=== PATIENT | female | born 1995 | race Caucasian/White ===

== ENCOUNTER 2020-04-03 17:06 | Emergency (ER) | payer OTHER, SELFPAY ==
[2020-04-03 17:25] VITALS: BP 124/70; PULSE 82; RESP 12; TEMP 37.6; O2SAT 100
--- NOTE | 2020-04-03 18:02 | ED.NAVMDI ---
HPI - Nausea/Vomiting/Diarrhea General Chief complaint: Nausea/Vomiting/Diarrhea Stated complaint: vomiting Source: patient and RN notes reviewed Limitations: no limitations History of Present Illness HPI Narrative: The patient, a non-smoker/nondrinker presents with vomiting and diarrhea. Patient states she has history of his anxiety disorder, previously admitted many years ago at [facility] and discharged on no meds. She is been seen by her PMD and placed on Cymbalta and has felt better in the last months. She now complains of shorter half week history of nausea &vomiting x5, associated with nabeel diarrhea x1 and epigastric discomfort. No fever, prior surgeries, blood, abdominal pain, sick family, LMP unknown -she is on Mirena. No fever, CP, sneezing/wheezing, S OB, rash cough, shortness of breath, loss of taste/smell- patient advised she will scheduled for COVID test. This vomiting has triggered / been associated with anxious episodes, for which she took her last Xanax [unk dose], she had saved and 'not used in months'. No guilt, weight loss [she had weight gain with the meds in the last 1 to 2 years], no insomnia, poor concentration [she works at a [employer]], no anhedonia, denies abuse:alcohol-substance abuse, - sex abuse. She has no suicidal plan ,nor homicidal ideation- Patient offered a hospital referral, but she prefers a trial of medication. Related Data Home Medications Medication Instructions Recorded Confirmed duloxetine 30 mg PO DAILY 04/03/20 04/03/20 levonorgestrel [Mirena] INTRAUTERINE 04/03/20 Allergies Allergy/AdvReac Type Severity Reaction Status Date / Time No Known Allergies Allergy Verified 04/03/20 17:13 Review of Systems Review of Systems: Narrative: General/Constitutional: No weight loss,fever Eyes: N0: Redness,discharge Ears/Nose/Throat: No: Epistaxis,ear discharge Respiratory: Denies: Hemoptysis Gastrointestinal: No Vomiting, Bleeding-rectal Skin: No Lumps, eruption Neurologic: No Focal Weakness,Sz Hematologic: Denies: Petechiae/Purpura Psychiatric: No: Suicida idea/ plan All Other Systems: Reviewed and Negative PMFSH Comments At time of signature, agree with nursing past medical, surgical, social and family history. There is no relevant family history pertinent to the presenting complaint Exam Narrative: Exam Narrative: General Appearance: lean appearing, No distress, fair eye contact EYE: PERRLA, Conjunctiva clear Ears: External ear normal Nose: Normal nose Mouth/Throat: Normal appearing, Normal lips Neck: Supple Respiratory: Airway patent, No respiratory distress Cardiovascular: RRR Abdomen: Soft, Non-tender, Musculoskeletal: Full ROM Skin: Warm, Dry Neurological: A&O x3, CN II-X intact Psychiatric: Normal affect with good range, mood- some hand wringing Course Vital Signs Vital signs: Vital Signs Temperature 99.7 F H 04/03/20 17:25 Pulse Rate 82 04/03/20 17:25 Respiratory Rate 12 04/03/20 17:25 Blood Pressure 124/70 04/03/20 17:25 Pulse Oximetry 100 04/03/20 17:25 Temperature 99.7 F H 04/03/20 17:25 Pulse Rate 82 04/03/20 17:25 Respiratory Rate 12 04/03/20 17:25 Blood Pressure 124/70 04/03/20 17:25 Pulse Oximetry 100 04/03/20 17:25 Discharge Plan Discharge Clinical Impression: Vomiting and diarrhea, Hx of anxiety disorder Patient Disposition: Home, Self-Care Condition: Stable Instructions: Acute Nausea and Vomiting (ED), Anxiety (ED) Additional Instructions: You may use OTC preparations for your stomach , like Imodium for diarrhea or Pepcid for heartburn Go to hospital if symptoms of nausea ,vomiting or anxiety persist Prescriptions: New prochlorperazine maleate [Compazine] 10 mg tablet 10 mg PO Q6H PRN (Reason: anxiety) Qty: 14 RF: 2 alprazolam [Xanax] 0.5 mg tablet 0.5 mg PO HS PRN (Reason: anxiety) Qty: 7 RF: 0 famotidine [Pepcid] 20 mg tablet 20 mg PO DAILY
[2020-04-03] MEDS: ONDANSETRON HCL ODT 4 MG TABLET PO (18:07)
== END 2020-04-03 18:14 | disposition home or self-care (01) ==
PROVIDERS: Emergency Provider Emergency Medicine
DX: R11.10 Vomiting, unspecified (principal); R19.7 Diarrhea, unspecified; F41.9 Anxiety disorder, unspecified
CPT/HCPCS: 99213; A9270; G0463

== ENCOUNTER → 2020-04-05 06:51 | Outpatient (CLI) | payer OTHER, SELFPAY ==
[2020-04-05 19:35] LABS: SARS-CoV-2 RNA PCR Negative
== END ==
PROVIDERS: Visit Provider Emergency Medicine
DX: R11.10 Vomiting, unspecified (principal); Z20.822 Contact with and (suspected) exposure to COVID-19
CPT/HCPCS: C9803; U0003; U0005